=== PATIENT | female | born 1955 | race Caucasian/White ===

== ENCOUNTER 2018-09-19 08:32 | Day surgery (SDC) | payer BC | END 2018-09-19 18:30 | disposition home or self-care (01) | LOC: FASU 08:32 ==

== ENCOUNTER 2018-09-28 09:59 | Day surgery (SDC) | payer BC ==
[2018-09-27 19:24] VITALS: BMI 41.2
[2018-09-28] MEDS ORDERED: KETOROLAC TROMETHAMINE 30 MG/1 ML VIAL IVPUSH PRN (12:43)
[2018-09-28] MEDS ORDERED: ONDANSETRON 4 MG/2 ML VIAL IVPUSH PRN ×2 (12:43→15:04)
[2018-09-28] MEDS ORDERED: DEXTROSE 5%-0.45% SALINE 1,000 ML IV SCH (12:45)
[2018-09-28] MEDS ORDERED: PROPOFOL 20 ML ONE (13:16)
[2018-09-28] MEDS ORDERED: MIDAZOLAM HCL 2 MG/2 ML SINGLE DOSE VIAL ONE (13:16)
[2018-09-28] MEDS ORDERED: LIDOCAINE HCL 2% JELLY (5 ML/TUBE) ONE (13:17)
[2018-09-28] MEDS ORDERED: GUM MASTIC/STORAX/MSAL/ALCOHOL 1 DRP DROPSBTL MC ONE (14:47)
[2018-09-28] MEDS ORDERED: PROMETHAZINE HCL 25 MG/1 ML VIAL IVPUSH PRN (15:04)
[2018-09-28] MEDS ORDERED: oxyCODONE HCL 5 MG TABLET PO PRN ×2 (15:04)
[2018-09-28] MEDS ORDERED: ONDANSETRON 4 MG/2 ML VIAL ONE (15:28)
[2018-09-28 16:58] VITALS: BP 136/75; PULSE 84
[2018-09-28 17:01] VITALS: TEMP 98.2
--- NOTE | 2018-09-29 06:36 | OP ---
DATE OF OPERATION: 09/28/2018 PREOPERATIVE DIAGNOSIS: Left breast upper outer quadrant invasive lobular cancer. POSTOPERATIVE DIAGNOSIS: Left breast upper outer quadrant invasive lobular cancer. PROCEDURE: Left breast wide excision with mammographic needle localization. ANESTHESIA: General, laryngeal mask airway anesthesia. PRIMARY SURGEON: Mitra Reyes MD [employer] FIELD CROP: SUKHWINDER Martinez COMPLICATIONS: There were no complications. INDICATIONS: Briefly the patient is a 63-year-old postmenopausal white female of [place] descent with no family history of breast or ovarian cancer. Her paternal grandmother from gastric cancer. She was found to have some asymmetry on mammography in August 2018 in the upper outer aspect of the left breast. An ultrasound showed a 1-cm density in the left breast 1 to 2 o'clock region 7 cm from the nipple. Ultrasound core biopsy on August 23, 2018, showed a classical type invasive lobular cancer which was ER/VT positive, HER2/azam negative with a low Ki-67. MRI showed the cancer to be localized. She had fairly ptotic D-cup breasts and was recommended to undergo a partial mastectomy with sentinel lymph node biopsy. Initial procedure was performed on September 19, 2018, and she had 2 negative sentinel nodes. Unfortunately at the time of the wide excision the clip was not seen in the specimen and we took multiple excision margins and could not find the clip. Final pathology only showed some LCIS and biopsy site changes and we performed a followup mammography a week postoperative which still showed the clip in position likely just anterior to the previous excisional site. The patient was rebooked for a wide excision with needle localization under mammographic guidance again. PROCEDURE IN DETAIL: She was brought in through ambulatory surgery on September 28, 2018, and first underwent the needle localization in radiology and was brought to the holding area. In the holding area a site verification was made and informed consent was obtained. She was brought into the operating room and laid on the OR table in a supine position. Venodynes were placed on the lower extremities. She received a gram of Ancef prior to incision. She underwent general laryngeal mask airway anesthesia. The left breast was sterilely prepped and draped in the usual fashion with the wire prepped in the field. Wide excision was undertaken around the needle localization using the same previous wide excision scar extending it slightly inferior and taking a small ellipse of skin with that anteriorly. Wide excision was undertaken around the needle localization without difficulty all the way down to the pectoralis major muscle and specimen was oriented with a long lateral, short superior suture and specimen radiographic showed removal of the clip in question. Hemostasis was achieved. The breast parenchyma was then reapproximated using a 4 x 3-cm tissue transfer closure and the breast tissue was reapproximated using 2-0 plain suture. The skin was closed using interrupted 3-0 deep dermal Vicryl suture and a running 4-0 subcuticular Monocryl suture. Mastisol and Steri-Strips were applied over the wound, a compressive dressing placed over this. She was placed in a surgical bra postoperatively. The patient tolerated the procedure well without difficulty. Estimated blood loss was about 10 mL. She was hemodynamically stable throughout. The patient had the laryngeal mask airway tube removed and will be recovered in the postanesthesia care unit. She will be discharged home the same day once discharge criteria are met. She is to follow up in the office in 1 week for a formal wound pathology check. MITRA REYES M.D. [id number]
--- NOTE | 2018-10-02 16:21 | PATH ---
Surgical Pathology Report Patient Name: KIKI SOLORZANO [facility]. Rec. #: [id number] /Age/Gender: 1955 (Age: 63) / F Account: [id number] Location: [facility] Taken: 09/28/2018 Received: 09/28/2018 Reported: 10/02/2018 Physicians: Clarence Reyes M.D. Specimen(s) Received A: LEFT BREAST WIDE EXCISION B: LATERAL MARGIN LEFT BREAST C: SUPERIOR MARGIN LEFT BREAST D: INFERIOR MARGIN LEFT BREAST E: MEDIAL MARGIN LEFT BREAST F: POSTERIOR MARGIN LEFT BREAST G: ANTERIOR MARGIN LEFT BREAST Clinical History Invasive Ca; re-excision for clip Final Diagnosis A. BREAST, LEFT, WIDE EXCISION: INVASIVE LOBULAR CARCINOMA, CLASSICAL TYPE (TUBULE SCORE: 3/3, NUCLEAR GRADE: 2/3, MITOTIC SCORE; 1/3, TOTAL SCORE: 6/9; JANEEN GRADE 2). (SEE NOTE) INVASIVE CARCINOMA MEASURES 1.6 CM IN GREATEST DIMEnSION, MICROSCOPICALLY. LOBULAR CARCINOM IN SITU (LCIS), CLASSICAL TYPE. INVASIVE CARCINOMA EXTENDS TO THE CAUTERIZED MEDIAL MARGIN SHOWING PRIOR BIOPSY SITE CHANGES. SEE SPECIMENS B-G FOR FINAL MARGINS. SKIN WITH NO PATHOLOGIC FINDINGS. NO LYMPHOVASCULAR INVASION IS IDENTIFIED. PATHOLOGIC STAGE (pTNM): pt1c pn0 (SEE NOTE). SEE ALSO INVASIVE CARCINOMA CASE SUMMARY BELOW. Note: The carcinoma is negative for E-Cadherin (performed at [facility]), which supports lobular phenotype. The "pN" stage is based on presence of benign left sentinel lymph nodes in prior excision specimen ([id number]). B. BREAST, LEFT, LATERAL MARGIN, EXCISION: benign breast tissue showing prior biopsy site changes. C. BREAST, LEFT, SUPERIOR MARGIN, EXCISION: benign breast tissue showing prior biopsy site changes. D. BREAST, LEFT, INFERIOR MARGIN, EXCISION: benign breast tissue showing prior biopsy site changes. E. BREAST, LEFT, MEDIAL MARGIN, EXCISION: INVASIVE LOBULAR CARCINOMA, CLASSICAL TYPE, MEASURING 2 MM IN GREATEST DIMENSION, MICROSCOPICALLY. THE NEW MARGIN IS UNINVOLVED BY CARCINOMA; CARCINOMA IS AT 1 MM FROM THE CLOSEST NEW MARGIN. LOBULAR CARCINOM IN SITU (LCIS), CLASSICAL TYPE. PRIOR BIOPSY SITE CHANGES ARE PRESENT. F. BREAST, LEFT, POSTERIOR MARGIN, EXCISION: LOBULAR CARCINOM IN SITU (LCIS), CLASSICAL TYPE. PRIOR BIOPSY SITE CHANGES ARE PRESENT. G. BREAST, LEFT, ANTERIOR MARGIN, EXCISION: benign breast tissue showing PRIOR BIOPSY SITE CHANGES. Comments Breast Invasive Carcinoma: Surgical Pathology Case Summary (Based on AJCC TNM 8 th edition) Procedure _X_ Excision (less than total mastectomy) Specimen Laterality _X_ Left Tumor Size _X_ Greatest dimension of largest invasive focus >1 mm (millimeters): 16 mm Histologic Type _X_ Invasive lobular carcinoma Histologic Grade ([place] Histologic Score) Glandular (Acinar)/Tubular Differentiation _X_ Score 3 (<10% of tumor area forming glandular/tubular structures) Nuclear Pleomorphism _X_ Score 2 Mitotic Rate _X_ Score 1 Overall Grade _X_ Grade 2 (scores of 6 or 7) Tumor Focality _X_ Single focus of invasive carcinoma Ductal Carcinoma In Situ (DCIS) _X_ No DCIS is present in specimen Margins Invasive Carcinoma Margins _X_ Uninvolved by invasive carcinoma Distance from closest margin (millimeters): 1 mm from final medial margin (E) Regional Lymph Nodes _X_ Uninvolved by tumor cells (based on prior excision specimen [id number]) Number of Lymph Nodes Examined: 2 Number of Gunter Nodes Examined: 2 Treatment Effect _X_ No known presurgical therapy Lymphovascular Invasion _X_ Not identified Pathologic Stage Classification (pTNM, AJCC 8th Edition) Primary Tumor (Invasive Carcinoma) (pT) _X_ pT1c: Tumor >10 mm but =20 mm in greatest dimension Regional Lymph Nodes (pN) Category (pN) _X_ pN0: No regional lymph node metastasis identified or ITCs only Biomarker Studies Results of ER and UT studies performed on this specimen (block A1) at [facility] are as follows: ER (clone [id number] mouse monoclonal antibody by [employer]): 100 % nuclear staining with strong intensity (positive). UT (clone16 mouse monoclonal antibody by [employer]) : ~80 % nuclear staining with moderate to strong intensity (positive). Results of Her2 and Ki67 studies will be reported separately in an addendum. Positive and negative controls (internal if applicable) show appropriate results. Formalin fixation and cold ischemic times are within current ASCO/CAP recommendations for ER, UT and Her2 testing. Electronically Signed Heather Wood M.D. Addendum Reported: 10/04/2018 Addendum Diagnosis Results of Her2 (IHC) & Ki-67 studies performed on block A1 at [place], [place] ([id number] ) are as follows: Her2 IHC (EP3 from [employer], formerly known as [id number], using [employer] Polymer Refine detection kit): 0 (negative). Ki-67: ~10% (low proliferative index). Positive and negative controls (internal if applicable) show appropriate results. Heather Wood M.D. Gross Description A. Received in formalin, labeled "left breast wide excision," is a 6.5 x 5.6 x 3.2 cm. murillo-yellow, irregular, portion of fibroadipose tissue with a needle localization wire present. There is a short suture marking the superior aspect and a long suture marking the lateral aspect, per the surgeon. The anterior surface displays a 2.4 x 1.1 cm murillo, elliptical, unremarkable portion of skin. The specimen displays focal defects at the lateral, medial and deep margins, consistent with an exposed previous biopsy cavity. The specimen is inked as follows: Superior blue; inferior green; lateral red; medial yellow; deep black. The specimen is serially sectioned from superior to inferior. Sectioning reveals a 1.3 x 1.0 x 1.0 cm murillo, indurated mass focally abutting the medial margin as well as the previous biopsy cavity. The mass is 1.4 cm from the lateral margin. The remaining margins appear widely clear of the mass. Muskrat Trapper sections are submitted in 9 cassettes as follows: 1-full-face section of mass with medial margin; 0-0-besybupugj sections of mass with medial margin; 4-5-lateral margin; 6-inferior margin; 7-superior margin; 8-deep margin; 9-skin. Time to formalin fixation: 20 minutes Total formalin fixation time: Approximately 27 hours. B. Received in formalin labeled "left breast lateral margin," is a 2.5 x 1.9 x 0.9 cm portion of fibroadipose tissue with a suture marking the biopsy cavity side, per the surgeon. The new margin is inked blue and the specimen is serially sectioned. The specimen is entirely submitted in 3 cassettes. C. Received in formalin labeled "left breast superior margin," is a 1.7 x 1.4 x 0.5 cm portion of fibroadipose tissue with a suture marking the biopsy cavity side, per the surgeon. The new margin is inked blue and the specimen is serially sectioned. The specimen is entirely submitted in 2 cassettes. D. Received in formalin labeled "left breast inferior margin," is a 3.2 x 2.0 x 1.0 cm portion of fibroadipose tissue with a suture marking the biopsy cavity side, per the surgeon. The new margin is inked blue and the specimen is serially sectioned. The specimen is entirely submitted in 3 cassettes. E. Received in formalin labeled "left breast medial margin," is a 2.2 x 2.1 x 0.8 cm portion of fibroadipose tissue with a suture marking the biopsy cavity side, per the surgeon. The new margin is inked blue and the specimen is serially sectioned. The specimen is entirely submitted in 3 cassettes. F. Received in formalin labeled "left breast posterior margin," is a 2.3 x 1.7 x 0.9 cm portion of fibroadipose tissue with a suture marking the biopsy cavity side, per the surgeon. The new margin is inked blue and the specimen is serially sectioned. The specimen is entirely submitted in 3 cassettes. G. Received in formalin labeled "left breast anterior margin," is a 2.2 x 1.8 x 1.1 cm portion of fibroadipose tissue with a suture marking the biopsy cavity side, per the surgeon. The new margin is inked blue and the specimen is serially sectioned. The specimen is entirely submitted in 3 cassettes. 09/29/[address] [facility]/2018
== END 2018-09-28 16:50 | disposition home or self-care (01) ==
LOC: FASU 09:59
PROVIDERS: ATTEND Surgery Surgical Oncology
PROC: 0JX60ZB Transfer Chest Subcutaneous Tissue and Fascia with Skin and Subcutaneous Tissue, Open Approach (ICD-10-PCS; 2018-09-28)
PROC: 0HBU0ZZ Excision of Left Breast, Open Approach (ICD-10-PCS; principal; 2018-09-28 14:00)
DX: C50.412 Malignant neoplasm of upper-outer quadrant of left female breast (principal)
CPT/HCPCS: 19281; 88307-TC; 88342-TC; 94760